=== PATIENT | male | born 1940 | race Caucasian/White ===

== ENCOUNTER 2024-08-30 08:30 | Day surgery (SDC) | payer MEDICARE, OTHER ==
[~2024-08-30 08:30] MED LIST: Acetaminophen 325 MG Tab PO PRN; Acetaminophen/Codeine 300-30 MG Tab PO PRN; Ondansetron 4 MG/2 ML SDV IVPUSH PRN
[2024-08-30] MEDS ORDERED: Midazolam 1 MG/ML 2 ML SDV IV ONE (08:31)
[2024-08-30] MEDS ORDERED: Dexamethasone 4 MG/ML SDV IV ONE (08:31)
[2024-08-30] MEDS ORDERED: Sodium Chloride 0.9% 10 ML Syringe IV ONE (08:31)
[2024-08-30] MEDS: Proparacaine 0.5% Ophth Soln 15 ML Bottle EYELF ONE ×2 (08:48→09:54)
[2024-08-30] MEDS: Moxifloxacin 0.5% Ophth Soln 3 ML Bottle EYELF ONE (08:49)
[2024-08-30] MEDS: Povidone-Iodine 5% Sterile Ophth Soln 30 ML Bottle EYELF ONE ×2 (08:50→09:54)
[2024-08-30] MEDS: Phenylephrine 10% Ophth Soln 5 ML Bot EYELF ONE (08:51)
[2024-08-30] MEDS: Tropicamide 1% Ophth Soln 15 ML Bottle EYELF ONE (08:51)
[2024-08-30] MEDS: Timolol Maleate 0.5% Ophth Soln 5 ML Bottle EYELF ONE (08:52)
[2024-08-30] MEDS: Cataract Ophth Solution EYELF ONE (08:53)
[2024-08-30] MEDS: Sodium Chloride 0.9% 10 ML Syringe FLUSH PRN (08:57)
[2024-08-30] MEDS: Lidocaine 1% 30 ML SDV ONE (09:54)
[2024-08-30] MEDS: VANCOmycin 500 MG SDV EYELF ONE (09:54)
[2024-08-30] MEDS: Diclofenac Sodium 0.1% Ophth Soln 5 ML Bottle EYELF ONE (10:05)
[2024-08-30] MEDS: Dexamethasone/Neomycin/Polymyxin B Ophth Oint 3.5 GM Tube EYELF ONE (10:05)
[2024-08-30] MEDS: Apraclonidine 0.5% Ophth Soln 5 ML Bot EYELF ONE (10:05)
[2024-08-30 10:44] VITALS: BP 122/81; PULSE 64
== END 2024-08-30 10:46 | disposition home or self-care (01) ==
LOC: DL.SDS 08:30
PROVIDERS: ATTEND Ophthalmology
DX: H25.812 Combined forms of age-related cataract, left eye (principal); E78.5 Hyperlipidemia, unspecified; Z87.891 Personal history of nicotine dependence; Z79.899 Other long term (current) drug therapy
CPT/HCPCS: 66982; A9270; J3370; J1100; J2250; J3490

== ENCOUNTER 2024-09-13 08:30 | Day surgery (SDC) | payer MEDICARE, OTHER ==
[2024-09-13] MEDS: Moxifloxacin 0.5% Ophth Soln 3 ML Bottle EYERT ONE (08:47)
[2024-09-13] MEDS: Proparacaine 0.5% Ophth Soln 15 ML Bottle EYERT ONE ×2 (08:47→09:24)
[2024-09-13] MEDS: Povidone-Iodine 5% Sterile Ophth Soln 30 ML Bottle EYERT ONE ×2 (08:48→09:24)
[2024-09-13] MEDS: Tropicamide 1% Ophth Soln 15 ML Bottle EYERT ONE (08:49)
[2024-09-13] MEDS: Phenylephrine 10% Ophth Soln 5 ML Bot EYERT ONE (08:49)
[2024-09-13] MEDS: Timolol Maleate 0.5% Ophth Soln 5 ML Bottle EYERT ONE (08:49)
[2024-09-13] MEDS: Cataract Ophth Solution EYERT ONE (08:51)
[2024-09-13] MEDS: Sodium Chloride 0.9% 10 ML Syringe FLUSH PRN (08:54)
[2024-09-13] MEDS: Apraclonidine 0.5% Ophth Soln 5 ML Bot EYERT ONE (09:25)
[2024-09-13] MEDS: Diclofenac Sodium 0.1% Ophth Soln 5 ML Bottle EYERT ONE (09:25)
[2024-09-13] MEDS: Dexamethasone/Neomycin/Polymyxin B Ophth Oint 3.5 GM Tube EYERT ONE (09:26)
[2024-09-13] MEDS: VANCOmycin 500 MG SDV EYERT ONE (09:26)
[2024-09-13] MEDS: Lidocaine 1% 30 ML SDV ONE (09:26)
[2024-09-13 10:23] VITALS: BP 113/69; PULSE 71
== END 2024-09-13 10:14 | disposition home or self-care (01) ==
LOC: DL.SDS 08:30
PROVIDERS: ATTEND Ophthalmology
DX: H25.811 Combined forms of age-related cataract, right eye (principal); Z87.891 Personal history of nicotine dependence; Z79.899 Other long term (current) drug therapy
CPT/HCPCS: 66982; A9270; J3370; J3490